=== PATIENT | female | born 1985 | race Caucasian/White ===

== ENCOUNTER 2020-08-06 19:00 | Emergency (ER) | payer OTHER ==
[~2020-08-06] VITALS: Ht 162.6 cm; Wt 70.5 kg
--- NOTE | 2020-08-06 19:24 | PHYS DOC ---
General Adult EDM: Chief Complaint: MECHANICAL FALL HPI: HPI: History obtained from patient. Patient is a 34-year-old female who presents with chief complaint of midline back pain status post fall 3 hours prior to arrival. States he was walking on a flight of stairs when she slipped and fell directly on her buttocks. She states she was carrying a backpack with this occurred. Denies striking her head or loss of consciousness. Did note some immediate shortness of breath. States it took her some time to get up. She states she has had midline thoracic back pain ever since falling. She does note a history of chronic low back pain due to lumbar disc herniation. Denies any previous spinal surgeries. Did try 600 milligrams of Advil prior to arrival. Denies headache. Denies any symptoms prior to falling. States pain is aching in nature. Rates the pain as a 4 out of 10. States ambulation makes pain worse. No other complaints. Review of Systems: Review of Systems: Constitutional: Denies fever or chills Eyes: Denies change in visual acuity HENT: Denies nasal congestion or sore throat Respiratory: Denies cough or shortness of breath Cardiovascular: Denies chest pain or edema GI: Denies abdominal pain, nausea, vomiting, bloody stools or diarrhea : Denies dysuria Musculoskeletal: Positive for follow back pain Integument: Denies rash Neurologic: Denies headache, focal weakness or sensory changes Endocrine: Denies polyuria or polydipsia Lymphatic: Denies swollen glands Psychiatric: Denies depression or anxiety Physical Exam: PE: Physical Exam Trauma: Primary Survey: Airway: Intact. Speaks in normal voice and phonation. Breathing: Breath sounds are clear and equal bilaterally. Circulation: Regular rhythm, 2+ and symmetric radial, DP and PT pulses. Disability: GCS on arrival was 15. Pupils 3 mm, ERRL Exposure: Complete exposure obtained and described in detail below. Secondary Survey: General: Awake, alert, appropriate, and in no acute distress HENT: Atraumatic. TMs clear bilaterally, no hemotympanum. No periorbital tenderness or deformity. No obvious craniofacial trauma. Midface is stable. No apparent dental or tongue/oropharyngeal injury. No septal hematoma. Neck: C-spine: no midline tenderness. Without step-off, deformity, abrasion, ecchymosis, or other signs of trauma. Paraspinal musculature with no tenderness and/or hypertonicity. Eyes: Pupils 3 mm ERRL, EOMI grossly, no evidence of ocular trauma, conjunctivae normal Respiratory: CTAB without wheezing, rhonchi, or rales. No distress. Chest wall with no tenderness to palpation. No crepitus, ecchymosis, or flail segment present. Cardiovascular: Regular rhythm without murmurs noted. 2+ and symmetric radial, DP and PT pulses. GI: Soft, non-tender, non-distended Musculoskeletal: T-spine: no midline tenderness. Without step-off, deformity, abrasion, ecchymosis, or other signs of trauma. Paraspinal musculature with no tenderness and/or hypertonicity. L-spine: no midline tenderness. Without step-off, deformity, abrasion, ecchymosis, or other signs of trauma. Paraspinal musculature with no tenderness and/or hypertonicity. RUE: Active ROM, no obvious deformity, no gross weakness or sensory deficits, warm & well-perfused LUE: Active ROM, no obvious deformity, no gross weakness or sensory deficits, warm & well-perfused RLE: Active ROM, no obvious deformity, no gross weakness or sensory deficits, warm & well-perfused LLE: Active ROM, no obvious deformity, no gross weakness or sensory deficits, warm & well-perfused Integument: Without abrasions, contusions, or lacerations. Neurologic: GCS on arrival as noted above. No obvious focal motor or sensory deficits on examination. Gait not assessed due to acuity of trauma assessment. Current Patient Data: Vital Signs: Vital Signs Date Time Temp Pulse Resp B/P (MAP) Pulse Ox O2 Delivery O2 Flow Rate FiO2 08/06/20 19:00 98.3 91 18 143/76 (98) 100 Room Air EKG: EKG: [] Radiology/Procedures: Radiology/Procedures: [address] [address] IMAGING REPORT Signed PATIENT: SABRINA ADAMS ACCOUNT: [id number] : 1985 LOCATION: ER AGE: 34 SEX: F EXAM STATUS: REG ER ORD. PHYSICIAN: JENNIFER HERRERA DO REASON: fall, SOB PROCEDURE: CHEST AP ONLY Exam: Chest one view INDICATION: Shortness of breath TECHNIQUE: Frontal view of the chest Comparisons: None FINDINGS: The cardiomediastinal silhouette and pulmonary vessels are within normal limits. The lung and pleural spaces are clear. IMPRESSION: No acute cardiopulmonary process. Electronically signed by: Miranda Parmar MD (08/06/2020 8:55 PM) [facility] DICTATED AND SIGNED BY: MIRANDA PARMAR MD DATE: 08/06/202054 CC: PCP,UNKNOWN; JENNIFER HERRERA DO ~ [place] [address] IMAGING REPORT Signed PATIENT: SABRINA ADAMS ACCOUNT: [id number] : 1985 LOCATION: ER AGE: 34 SEX: F EXAM STATUS: REG ER ORD. PHYSICIAN: JENNIFER HERRERA DO REASON: fall, SOB PROCEDURE: PELVIS Exam: Pelvis 1 view INDICATION: Fall, shortness of breath TECHNIQUE: Frontal view of the chest Comparisons: None FINDINGS: Bone mineralization is normal. No acute or healed fractures. Soft tissues are unremarkable. IUD noted within the pelvis. Joint spaces are well-maintained. IMPRESSION: No acute osseous abnormality. Electronically signed by: Miranda Parmar MD (08/06/2020 8:57 PM) [facility] DI[facility]ATED AND SIGNED BY: MIRANDA PARMAR MD DATE: 08/06/202056 CC: PCP,UNKNOWN; JENNIFER HERRERA DO ~ [place] [id number] IMAGING REPORT Signed PATIENT: SABRINA ADAMS ACCOUNT: [id number] : 1985 LOCATION: ER AGE: 34 SEX: F EXAM STATUS: REG ER ORD. PHYSICIAN: JENNIFER HERRERA DO REASON: fall, BP PROCEDURE: CT CERVICAL SPINE WO CONTRAST Exam: CT cervical, thoracic and lumbar spine without contrast INDICATION: Fall, back pain TECHNIQUE: Sequential axial images through the cervical, thoracic and lumbar spine obtained without IV contrast. Sagittal and coronal reformatted images were reconstructed from the axial data and reviewed. Comparisons: None FINDINGS: Cervical spine: Intracranial structures are unremarkable. Vertebral body heights and alignment are well-maintained. Fracture to the cervical spine is not identified. No significant spondylotic changes lumbar spine. Visualized paraspinal soft tissues are unremarkable. Thoracic spine: Mild compression deformity involving superior endplate of T7 vertebral body with no significant height loss or retropulsion. Vertebral body alignment is well maintained. No other fractures identified in the thoracic spine. No significant spondylotic changes thoracic spine. Visualized soft tissues are unremarkable. Lumbar spine: Vertebral body heights and alignment are well-maintained. Fracture through the lumbar spine is not identified. No significant spondylotic changes lumbar spine. Nonobstructing right renal calculus. IMPRESSION: 1. Mild compression deformity involving the superior endplate of the T7 vertebral body without significant height loss or retropulsion into the spinal canal. 2. A CT C-spine for acute traumatic injury. 3. Negative CT L-spine for acute traumatic injury. Exposure: One or more of the following in the visualized dose reduction techniques were utilized for this examination: 1. Automated exposure control 2. Adjustment of the MA and/or KV according to patient size 3. Use of iterative of reconstructive technique 4. Electronically signed by: Miranda Parmar MD (08/06/2020 9:14 PM) [facility] DICTATED AND SIGNED BY: MIRANDA PARMAR MD DATE: 08/06/202113 CC: PCP,UNKNOWN; JENNIFER HERRERA DO ~ [] Heart Score: Risk Factors: Risk Factors: DM, Current or recent (<one month) smoker, HTN, HLP, family history of CAD, obesity. Risk Scores: Score 0 - 3: 2.5% MACE over next 6 weeks - Discharge Home Score 4 - 6: 20.3% MACE over next 6 weeks - Admit for Clinical Observation Score 7 - 10: 72.7% MACE over next 6 weeks - Early Invasive Strategies Course & Med Decision Making: Course & Med Decision Making Pertinent Labs and Imaging studies reviewed. (See chart for details) [] Patient is a very pleasant 34-year-old female who presents with chief complaint of midline thoracic pain after mechanical fall. Imaging does reveal a slight compression fracture at the T7 region. No signs of significant vertebral body height loss. Patient has no neurologic symptoms. Patient's pain was well controlled in the emergency department. She will be given referral to neurosurgeon for follow-up. She was discharged home with analgesia. Repeat examination remains benign. Return precautions discussed and understood. Stable for discharge home. Davi Disclaimer: Davi Disclaimer: This electronic medical record was generated, in whole or in part, using a voice recognition dictation system. Departure Departure: Impression: Primary Impression: Compression fracture of T7 vertebra Qualified Codes: S22.060A - Wedge compression fracture of T7-t8 vertebra, initial encounter for closed fracture Additional Impression: Fall Qualified Codes: W19.XXXA - Unspecified fall, initial encounter Disposition: DC HOME SELF CARE/HOMELESS Condition: STABLE Referrals: PCP,UNKNOWN (PCP) Patient Instructions: Back, Compression Fracture Additional Instructions: Dr. Oliver Bridges MD Address: [address] [place] [address] [address], [place] [address] Scripts Hydrocodone Bit/Acetaminophen (NORCO 5-325 TABLET) 1 Each Tablet 1-2 TAB PO Q4-6HRS for pain, #10 TAB Prov: JENNIFER HERRERA DO 08/06/20 JENNIFER HERRERA DO Aug 06, 2020 19:24
[2020-08-06] MEDS ORDERED: ACETAMINOPHEN 500 MG TABLET PO ONE (20:15)
[2020-08-06] MEDS ORDERED: KETOROLAC 30 MG/ML VIAL. IM ONE (20:15)
[2020-08-06] MEDS ORDERED: LIDOCAINE (700MG/PATCH) PATCH. TD ONE (20:15)
--- NOTE | 2020-08-06 20:58 | RAD ---
Exam: Chest one view INDICATION: Shortness of breath TECHNIQUE: Frontal view of the chest Comparisons: None FINDINGS: The cardiomediastinal silhouette and pulmonary vessels are within normal limits. The lung and pleural spaces are clear. IMPRESSION: No acute cardiopulmonary process. Electronically signed by: Miranda Rivera MD (08/06/2020 8:55 PM) [facility]
--- NOTE | 2020-08-06 20:59 | RAD ---
Exam: Pelvis 1 view INDICATION: Fall, shortness of breath TECHNIQUE: Frontal view of the chest Comparisons: None FINDINGS: Bone mineralization is normal. No acute or healed fractures. Soft tissues are unremarkable. IUD noted within the pelvis. Joint spaces are well-maintained. IMPRESSION: No acute osseous abnormality. Electronically signed by: Miranda Rivera MD (08/06/2020 8:57 PM) [facility]
--- NOTE | 2020-08-06 21:17 | RAD ---
Exam: CT cervical, thoracic and lumbar spine without contrast INDICATION: Fall, back pain TECHNIQUE: Sequential axial images through the cervical, thoracic and lumbar spine obtained without IV contrast. Sagittal and coronal reformatted images were reconstructed from the axial data and reviewed. Comparisons: None FINDINGS: Cervical spine: Intracranial structures are unremarkable. Vertebral body heights and alignment are well-maintained. Fracture to the cervical spine is not identified. No significant spondylotic changes lumbar spine. Visualized paraspinal soft tissues are unremarkable. Thoracic spine: Mild compression deformity involving superior endplate of T7 vertebral body with no significant height loss or retropulsion. Vertebral body alignment is well maintained. No other fractures identified in the thoracic spine. No significant spondylotic changes thoracic spine. Visualized soft tissues are unremarkable. Lumbar spine: Vertebral body heights and alignment are well-maintained. Fracture through the lumbar spine is not identified. No significant spondylotic changes lumbar spine. Nonobstructing right renal calculus. IMPRESSION: 1. Mild compression deformity involving the superior endplate of the T7 vertebral body without significant height loss or retropulsion into the spinal canal. 2. A CT C-spine for acute traumatic injury. 3. Negative CT L-spine for acute traumatic injury. Exposure: One or more of the following in the visualized dose reduction techniques were utilized for this examination: 1. Automated exposure control 2. Adjustment of the MA and/or KV according to patient size 3. Use of iterative of reconstructive technique 4. Electronically signed by: Miranda Rivera MD (08/06/2020 9:14 PM) [facility]
[2020-08-06] MEDS ORDERED: HYDR-3165 PO (21:28)
[2020-08-06 22:00] VITALS: BP 160/93
== END 2020-08-06 22:00 | disposition home or self-care (01) ==
LOC: ER 19:00
DX: S22.060A Wedge compression fracture of T7-T8 vertebra, initial encounter for closed fracture (principal); G89.29 Other chronic pain; M54.5 Low back pain; W10.8XXA Fall (on) (from) other stairs and steps, initial encounter; Y93.01 Activity, walking, marching and hiking; Y92.89 Other specified places as the place of occurrence of the external cause; Y99.8 Other external cause status
CPT/HCPCS: 71045; 72125; 72128; 72131; 72170; 81025; 96372; 99285; J1885

== ENCOUNTER 2021-05-08 06:47 | Emergency (ER) | payer OTHER ==
[~2021-05-08] VITALS: Ht 162.6 cm; Wt 72.7 kg
[~2021-05-08 06:47] MED LIST: HYDR-3165 PO
[2021-05-08] MEDS ORDERED: IV NORMAL SALINE 1,000ML 1,000 ML IV SCH (07:00)
[2021-05-08] MEDS ORDERED: ONDANSETRON PF 4 MG/2 ML VIAL. IVP ONE (07:00)
[2021-05-08] MEDS ORDERED: ONDANSETRON PF 4 MG/2 ML VIAL. ONE (07:03)
--- NOTE | 2021-05-08 07:20 | PHYS DOC ---
Past History Past Medical History: Other Additional Past Medical Histor: adhd, chronic bronchitis, herniated disk in lower back, arthritis left foot Past Surgical History: Other Additional Past Surgical Histo: wisdom teeth Smoking: Non-smoker Alcohol Use: None Drug Use: None General Adult EDM: Chief Complaint: FLANK PAIN Problems: (1) Right flank pain HPI: HPI: 35-year-old female with no past medical history presents to the emergency department complaining of right-sided flank pain that has been present for the past 2 hours. She reports the pain came on suddenly, is associated with difficulty with urination, chills, nausea without vomiting. She also admits to some loose stools yesterday but no rectal bleeding or other stool changes. She has never had a kidney stone before. She denies any rash. She admits that she has never had this pain before. Denies surgical history. The patient denies vomiting, fever, chills, chest pain, shortness of breath, cough, recent trauma, or any other complaints. Review of Systems: Review of Systems: Constitutional: Admits to chills, denies fever. . HENT: Denies congestion or sore throat. Respiratory: Denies cough or shortness of breath. Cardiovascular: Denies chest pain or edema. GI: Admits to nausea, denies abdominal pain. : Admits to difficulty with urination, denies hematuria. Musculoskeletal: Denies midline back pain, trauma injuries. Skin: Denies rash, skin change. Psychiatric: Denies depression or anxiety. All other systems reviewed as negative except for what was mentioned in the HPI. Family History: Family History: Coronary artery disease in older relatives Current Medications: Current Meds: Current Medications Medications (Trade) Dose Ordered Sig/[facility] Start Time Stop Time Status Last Admin Dose Admin Fentanyl Citrate (Fentanyl 2ml Vial) 75 mcg 1X ONCE 05/08/21 07:00 05/08/21 07:12 DC Ondansetron HCl (Zofran) 4 mg STK-MED ONCE 05/08/21 07:03 05/08/21 07:03 DC Sodium Chloride 1,000 ml @ 1,000 mls/hr Q1H 05/08/21 07:00 05/08/21 07:11 DC Patient refused all medications Allergies: Allergies: Allergies Coded Allergies Type Severity Reaction Last Updated Verified tramadol Allergy Unknown 05/08/21 Yes Physical Exam: PE: Constitutional: Moderate distress, writhing in bed. HENT: Atraumatic, bilateral external ears normal, nose normal. Eyes: PERRLA, EOMI, conjunctiva normal, no discharge. Neck: No audible stridor, supple neck Cardiovascular: Heart rate regular rhythm. 2+ radial pulses Lungs & Thorax: No respiratory distress, symmetrical expansion. Bilateral breath sounds clear to auscultation Abdomen: Soft, no tenderness Genitourinary: Right-sided CVA tenderness Skin: Warm, dry. No rashes appreciated. Extremities: No tenderness, no cyanosis, ROM intact, no edema. Neurologic: Alert and oriented X 3, normal motor function, normal sensory function, no focal deficits noted. Non ataxic gait. GCS 15. Psychologic: Affect normal, judgment normal, mood normal. Current Patient Data: Labs: Laboratory Tests Test 05/08/21 07:05 05/08/21 07:22 Urine Collection Type Void Urine Color Yellow Urine Clarity Clear Urine pH 5.5 Urine Specific [place] 1.025 Urine Protein Neg (NEG-TRACE) Urine Glucose (UA) Neg mg/dL (NEG) Urine Ketones (Stick) Trace mg/dL (NEG) Urine Blood Large (NEG) Urine Nitrite Neg (NEG) Urine Bilirubin Neg (NEG) Urine Urobilinogen Dipstick 0.2 mg/dL (0.2 mg/dL) Urine Leukocyte Esterase Trace (NEG) Urine RBC 11-20 /HPF (0-2) Urine WBC 5-10 /HPF (0-4) Urine Squamous Epithelial Cells Mod /LPF Urine Bacteria Few /HPF (0-FEW) Urine Hyaline Casts Occ /HPF Urine Mucus Mod /LPF POC Urine HCG, Qualitative hcg negative (Negative) Vital Signs: Vital Signs Date Time Temp Pulse Resp B/P (MAP) Pulse Ox O2 Delivery O2 Flow Rate FiO2 05/08/21 06:56 98.1 72 18 130/79 99 Room Air Radiology/Procedures: Radiology/Procedures: Examination: CT of the abdomen pelvis without contrast HISTORY: History of flank pain COMPARISON: None TECHNIQUE: Axial CT images of the abdomen pelvis are performed without contrast. Coronal and sagittal reformats are performed Exposure: One or more of the following individualized dose reduction techniques were utilized for this examination: 1. Automated exposure control 2. Adjustment of the mA and/or kV according to patient size 3. Use of iterative reconstruction technique FINDINGS: The bibasilar lungs are clear. No evidence of free air identified in the abdomen. The evaluation of the solid organs is limited due to lack of IV contrast. The evaluation of bowel is limited due to lack of oral contrast. The visualized noncontrasted liver, spleen, adrenals grossly appears unremarkable. The gallbladder is mildly distended. The stomach is mildly distended. The visualized pancreas grossly appears unremarkable. Mild fluid distended small bowel loops identified. The appendix is normal. Feces and gas noted in the colon. There is 3 mm calculus identified in the right kidney. No evidence of hydronephrosis. No evidence of lytic or destructive lesion. IMPRESSION: 1. 3 mm calculus identified in the right kidney. No evidence of hydronephrosis. 2. Mild fluid distended small bowel loops, nonspecific. Heart Score: C/O Chest Pain: N/A Course & Med Decision Making: Course & Med Decision Making The patient was seen in moderate distress, stable vital signs. She urinated after my exam, passing what appeared to be a very small kidney stone. She felt immediate relief after urinating, she refused all labs, IV, fluids and analgesics as she was not in pain anymore. She was amenable to a CT scan. She denied any further complaints and felt much better. She was appropriate for discharge in improved condition and was counseled on return precautions and hydration at home. Departure Departure: Impression: Primary Impression: Right renal stone Disposition: 01 HOME / SELF CARE / HOMELESS Condition: STABLE Referrals: BERNARD MENDEZ DO (PCP) Patient Instructions: Kidney Stones, [id number] Additional Instructions: You were seen in the emergency department for a kidney stone that likely has passed in the emergency department. Kidney stones can pass in a few days or may take a few weeks depending on many factors. You should return to the emergency department if you develop worsening pain, fever, continued bloody urine, lightheadedness, shortness of breath, chest pain, or any other new or concerning symptoms, or difficulty eating or drinking due to nausea. Do not drive while taking the pain medicine and please take as directed. Please follow up with a primary care doctor or urologist in a few days if you are not feeling better. Scripts Cephalexin (CEPHALEXIN) 500 Mg Capsule 1 CAP PO BID for UTI for 5 Days, #10 CAP Prov: JUAN SIMPSON DO 05/08/21 JUAN SIMPSON 30, 2021 07:20
[2021-05-08 07:39] LABS: BILIRUBIN,URINE NEG (NEG); CLARITY,URINE CLEAR; COLOR,URINE YELLOW; GLUCOSE,URINE NEG (NEG); NITRITE,URINE NEG (NEG); UROBILINOGEN,URINE 0.2 mg/dL (0.2 mg/dL)
[2021-05-08 07:41] LABS: SQUAMOUS EPITHELIAL CELL,UR MOD /LPF
[2021-05-08 07:43] LABS: BACTERIA,URINE FEW /HPF (0-FEW); HYALINE CASTS, URINE OCC /HPF
[2021-05-08] MEDS ORDERED: CEPH500C PO (07:52)
--- NOTE | 2021-05-08 07:59 | RAD ---
Examination: CT of the abdomen pelvis without contrast HISTORY: History of flank pain COMPARISON: None TECHNIQUE: Axial CT images of the abdomen pelvis are performed without contrast. Coronal and sagittal reformats are performed Exposure: One or more of the following individualized dose reduction techniques were utilized for thi s examination: 1. Automated exposure control 2. Adjustment of the mA and/or kV according to patient size 3. Use of iterative reconstruction technique FINDINGS: The bibasilar lungs are clear. No evidence of free air identified in the abdomen. The evaluation of the solid organs is limited due to lack of IV contrast. The evaluation of bowel is limited due to lack of oral contrast. The visualized noncontrasted liver, spleen, adrenals grossly ap pears unremarkable. The gallbladder is mildly distended. The stomach is mildly distended. The visuali zed pancreas grossly appears unremarkable. Mild fluid distended small bowel loops identified. The cristino endix is normal. Feces and gas noted in the colon. There is 3 mm calculus identified in the right kidney. No evidence of hydronephrosis. No evidence of lytic or destructive lesion. IMPRESSION: 1. 3 mm calculus identified in the right kidney. No evidence of hydronephrosis. 2. Mild fluid distended small bowel loops, nonspecific. Electronically signed by: Abraham Arrieta MD (05/08/2021 7:57 AM) [id number]
== END 2021-05-08 08:15 | disposition home or self-care (01) ==
LOC: ER 06:47
DX: N20.0 Calculus of kidney (principal); Z88.5 Allergy status to narcotic agent
CPT/HCPCS: 74176; 81001; 81025; 87086; 99284-25

== ENCOUNTER 2021-10-22 14:53 | Emergency (ER) | payer OTHER ==
[~2021-10-22] VITALS: Ht 162.6 cm; Wt 72.7 kg
[~2021-10-22 14:53] MED LIST changes: +CEPH500C PO
[2021-10-22 16:57] VITALS: BP 125/67
--- NOTE | 2021-10-22 17:46 | RAD ---
Chest radiograph 10/22/2021 5:35 PM INDICATION: Shortness of breath COMPARISON: 08/06/2020 TECHNIQUE: Frontal and lateral views of the chest are provided. FINDINGS: The cardiomediastinal silhouette is within normal limits. There are no pleural effusions. There is no pulmonary vascular congestion. There is no pneumothorax. The lungs are clear. No significant osseous abnormality is identified. IMPRESSION: No acute cardiopulmonary process. Electronically signed by: Tara Walker MD (10/22/2021 5:43 PM) [facility]
--- NOTE | 2021-10-22 18:25 | PHYS DOC ---
Past History Past Medical History: Bronchitis, Other Additional Past Medical Histor: adhd, chronic bronchitis, herniated disk in lower back, arthritis left foot Past Surgical History: Other Additional Past Surgical Histo: wisdom teeth Smoking: Non-smoker Alcohol Use: None Drug Use: None General Adult EDM: Chief Complaint: SHORTNESS OF BREATH HPI: HPI: Patient is a 36 year old female who presents with above hx and complaints of increased dyspnea and cough. Review of Systems: Review of Systems: Constitutional: Subjective complaints fever or chills Eyes: Denies change in visual acuity HENT: Denies nasal congestion or sore throat Respiratory: Complains cough and shortness of breath Cardiovascular: Denies chest pain or edema GI: Denies abdominal pain, nausea, vomiting, bloody stools or diarrhea : Denies dysuria Musculoskeletal: Denies back pain or joint pain Integument: Denies rash Neurologic: Denies headache, focal weakness or sensory changes Endocrine: Denies polyuria or polydipsia Lymphatic: Denies swollen glands Psychiatric: Denies depression or anxiety Family History: Family History: Non contributory Current Medications: Current Meds: See Nursing Allergies: Allergies: Allergies Coded Allergies Type Severity Reaction Last Updated Verified tramadol Allergy Unknown 05/08/21 Yes Physical Exam: PE: Constitutional: , no acute distress, non-toxic appearance. [] HENT: Normocephalic, atraumatic, bilateral external ears normal, oropharynx moist, no oral exudates, nose normal. [] Eyes: PERRLA, EOMI, conjunctiva normal, no discharge. [] Neck: Normal range of motion, no tenderness, supple, no stridor. [] Cardiovascular:Heart rate regular rhythm, no murmur [] Lungs & Thorax: Bilateral breath sounds equal scattered wheezes on auscultation [] Abdomen: Bowel sounds normal, soft, no tenderness, no masses, no pulsatile masses. [] Skin: Warm, dry, no erythema, no rash. [] Back: No tenderness, no CVA tenderness. [] Extremities: No tenderness, no cyanosis, no clubbing, ROM intact, no edema. [] No cording . Neurologic: Alert and oriented X 3, normal motor function, normal sensory function, no focal deficits noted. [] Psychologic: Affect normal, judgement normal, mood normal. [] Current Patient Data: Vital Signs: Vital Signs Date Time Temp Pulse Resp B/P (MAP) Pulse Ox O2 Delivery O2 Flow Rate FiO2 10/22/21 16:57 98.5 86 16 125/67 (86) 98 Room Air EKG: EKG: [] Radiology/Procedures: Radiology/Procedures: [address] [address] IMAGING REPORT Signed PATIENT: SABRINA ADAMS ACCOUNT: [id number] : 1985 LOCATION: ER AGE: 36 SEX: F EXAM STATUS: REG ER ORD. PHYSICIAN: JESENIA LUNDBERG DO REASON: SOB PROCEDURE: CHEST PA & LATERAL Chest radiograph 10/22/2021 5:35 PM INDICATION: Shortness of breath COMPARISON: 08/06/2020 TECHNIQUE: Frontal and lateral views of the chest are provided. FINDINGS: The cardiomediastinal silhouette is within normal limits. There are no pleural effusions. There is no pulmonary vascular congestion. There is no pneumothorax. The lungs are clear. No significant osseous abnormality is identified. IMPRESSION: No acute cardiopulmonary process. Electronically signed by: Christine Syed MD (10/22/2021 5:43 PM) [facility] DICTATED AND SIGNED BY: CHRISTINE SYED MD DATE: 10/22/211742 CC: BERNARD MENDEZ DO; JESENIA LUNDBERG DO; EMERGENCY,DEPARTMENT ~MTH0 0 [][address] [address] IMAGING REPORT Signed PATIENT: SABRINA ADAMS ACCOUNT: [id number] : 1985 LOCATION: ER AGE: 36 SEX: F EXAM STATUS: REG ER ORD. PHYSICIAN: JESENIA LUNDBERG DO REASON: SOB PROCEDURE: CHEST PA & LATERAL Chest radiograph 10/22/2021 5:35 PM INDICATION: Shortness of breath COMPARISON: 08/06/2020 TECHNIQUE: Frontal and lateral views of the chest are provided. FINDINGS: The cardiomediastinal silhouette is within normal limits. There are no pleural effusions. There is no pulmonary vascular congestion. There is no pneumothorax. The lungs are clear. No significant osseous abnormality is identified. IMPRESSION: No acute cardiopulmonary process. Electronically signed by: Christine Syed MD (10/22/2021 5:43 PM) [facility] DICTATED AND SIGNED BY: CHRISTINE SYED MD DATE: 10/22/211742 CC: BERNARD MENDEZ DO; JESENIA LUNDBERG DO; EMERGENCY,DEPARTMENT ~MTH0 0 Heart Score: C/O Chest Pain: N/A Risk Factors: Risk Factors: DM, Current or recent (<one month) smoker, HTN, HLP, family history of CAD, obesity. Risk Scores: Score 0 - 3: 2.5% MACE over next 6 weeks - Discharge Home Score 4 - 6: 20.3% MACE over next 6 weeks - Admit for Clinical Observation Score 7 - 10: 72.7% MACE over next 6 weeks - Early Invasive Strategies Course & Med Decision Making: Course & Med Decision Making Pertinent Labs and Imaging studies reviewed. (See chart for details) Use MDI two puffs four times a day. Take Azithromax as directed. Take Diflucan as directed. Impression: 1.Bronchitis 2. Upper respiration infection. Note lost of dictation- due to computer shunt down- Item [id number] [] Dragon Disclaimer: Dragon Disclaimer: This electronic medical record was generated, in whole or in part, using a voice recognition dictation system. Departure Departure: Referrals: BERNARD MENDEZ DO (PCP) Scripts Fluconazole (DIFLUCAN) 100 Mg Tablet 100 MG PO DAILY for post antibiotics for 3 Days, #3 TAB Prov: TIGRE UP MD 10/22/21 Ondansetron (ONDANSETRON ODT) 8 Mg Tab.rapdis 8 MG PO qidp for nv, #30 TAB Prov: TIGRE UP MD 10/22/21 Azithromycin (ZITHROMAX) 250 Mg Tablet 250 MG PO DAILY for ANTI-BIOTIC for 5 Days, #5 TAB 0 Refills Prov: TIGRE UP MD 10/22/21 Dragdianne Disclaimer This chart was dictated in whole or in part using Voice Recognition software in a busy, high-work load, and often noisy Emergency Department environment. It may contain unintended and wholly unrecognized errors or omissions. TIGRE UP MD Oct 22, 2021 18:25
[2021-10-22] MEDS ORDERED: FLUC100T7 PO (18:56)
[2021-10-22] MEDS ORDERED: AZIT250T PO (18:56)
[2021-10-22] MEDS ORDERED: ONDA8TAB15 PO (18:56)
[2021-10-22] MEDS ORDERED: ONDANSETRON ODT 4 MG TAB.RAPDIS PO ONE (19:00)
[2021-10-22] MEDS ORDERED: AZITHROMYCIN 250 MG TABLET. PO ONE (19:00)
[2021-10-22] MEDS ORDERED: ALBUTEROL SULFATE 8GM INHALER. INH ONE (19:00)
== END 2021-10-22 19:04 | disposition home or self-care (01) ==
LOC: ER 14:53
DX: J40 Bronchitis, not specified as acute or chronic (principal); J06.9 Acute upper respiratory infection, unspecified; Z88.6 Allergy status to analgesic agent
CPT/HCPCS: 71046; 94640; 99283; Q0162; 94664